=== PATIENT | female | born 1955 | race Caucasian/White ===

== ENCOUNTER 2023-03-23 13:54 | Inpatient (IN) | payer BC ==
[2023-03-23 14:28] LABS: #Basophils 0.1 thou/uL (0.0-0.2); #Eosinphils 0.1 thou/uL (0.0-0.7); #Monocytes 0.4 thou/uL (0.11-0.59); #Neutrophils 4.3 thou/uL (1.40-6.50); %Basophils 0.6 % (0.0-1.0); %Eosinophils 1.5 % (0.0-10.0); %Lymphocytes 39.3 % (21.0-51.0); %Monocytes 4.9 % (0.0-10.0); %Neutrophils 53.3 % (42.0-75.0); Hematocrit 41.6 % (36.0-47.0); Hemoglobin 13.7 g/dL (12.0-16.0); Mean Corpuscular HGB CONC 32.9 g/dL (32.0-36.0); Mean Corpuscular Volume 94.1 fl (78.0-98.0); Mean Platelet Volume 10.5 fL (7.4-10.4); Platelet Count 244 10x3/uL (130-400); RBC Distribution Width 13.3 % (11.5-14.5); Red Blood Cell (RBC) Count 4.42 mill/uL (4.20-5.40); White Blood Cell (WBC) Count 8.1 10x3/uL (4.8-10.8)
[2023-03-23] MEDS ORDERED: Aspirin Chewable 81 MG TAB ONE (14:38)
[2023-03-23] MEDS ORDERED: Nitroglycerin 0.4 MG TAB (25 Tab Bottle) ONE (14:38)
[2023-03-23 14:54] LABS: ALT (SGPT) 30 U/L (8-55); AST (SGOT) 23 U/L (5-34); Albumin 4.6 g/dL (3.4-4.8); Alkaline Phosphatase 87 U/L (40-110); Anion Gap 15 mmol/L (10-20); BUN (Urea Nitrogen) 15 mg/dL (9.8-20.1); Bilirubin, Total 0.3 mg/dL (0.2-1.2); Calc. Creatinine Clearance 0 mL/min (70-130); Calcium 9.8 mg/dL (7.8-10.44); Carbon Dioxide 24 mmol/L (23-31); Chloride 105 mmol/L (98-107); Estimated GFR 85; Globulin 2.7 g/dL (2.4-3.5); Glucose 103 mg/dL (80-115); Lipase 37 U/L (8-78); Potassium 3.8 mmol/L (3.5-5.1); Protein, Total 7.3 g/dL (5.8-8.1); Sodium 140 mmol/L (136-145); Troponin I Less than 0.010 ng/mL (< 0.028)
[2023-03-23] MEDS ORDERED: Nitroglycerin 2% Ointment 1 INCH/1 GM Packet ONE (15:39)
[2023-03-23] MEDS ORDERED: Acetaminophen 325 MG TAB PO PRN (16:07)
[2023-03-23] MEDS ORDERED: Nitroglycerin 0.4 MG TAB (25 Tab Bottle) SL PRN (16:07)
[2023-03-23] MEDS ORDERED: Ondansetron ODT 4 MG TAB PO PRN (16:07)
[2023-03-23 18:35] LABS: Troponin I Less than 0.010 ng/mL (< 0.028)
[2023-03-23 21:17] LABS: Troponin I Less than 0.010 ng/mL (< 0.028)
[2023-03-24] MEDS: Metoprolol Tartrate 25 MG TAB PO SCH ×2 (00:10→08:37)
[2023-03-24] MEDS: Famotidine 20 MG TAB PO SCH ×3 (00:10→20:30)
[2023-03-24] MEDS: Atorvastatin Calcium 40 MG TAB PO SCH ×2 (00:10→20:30)
[2023-03-24] MEDS ORDERED: Metoprolol Tartrate 25 MG TAB ONE ×2 (00:15→07:47)
[2023-03-24] MEDS ORDERED: Famotidine 20 MG TAB ONE ×2 (00:15→07:47)
[2023-03-24] MEDS ORDERED: Atorvastatin Calcium 40 MG TAB ONE (00:15)
[2023-03-24] MEDS ORDERED: Nitroglycerin 2% Ointment 1 INCH/1 GM Packet ONE ×2 (00:15→06:40)
[2023-03-24] MEDS: Nitroglycerin 2% Ointment 1 INCH/1 GM Packet TOP SCH ×3 (00:21→15:20)
[2023-03-24 06:15] LABS: Cardiac Risk 4.1 (Less than 4.5)
[2023-03-24] MEDS ORDERED: Aspirin Chewable 81 MG TAB ONE (07:48)
[2023-03-24] MEDS: Aspirin Chewable 81 MG TAB PO SCH (08:04)
[2023-03-24 15:07] VITALS: BMI 31.6
[2023-03-25] MEDS: Nitroglycerin 2% Ointment 1 INCH/1 GM Packet TOP SCH ×3 (03:39→14:44)
[2023-03-25] MEDS: Aspirin Chewable 81 MG TAB PO SCH (10:01)
[2023-03-25] MEDS: Famotidine 20 MG TAB PO SCH (10:01)
[2023-03-25 19:07] VITALS: BP 150/79; TEMP 98.7
== END 2023-03-25 19:40 | disposition home or self-care (01) | DRG 392 ==
LOC: ERS 13:54 → ERHOLD 15:49 → 2SW 03-24 14:49 → OBSVTOIN 03-25 14:01
PROVIDERS: ADMIT Internal Medicine; ATTEND Internal Medicine
DX: K21.9 Gastro-esophageal reflux disease without esophagitis (principal); E78.00 Pure hypercholesterolemia, unspecified; Z88.0 Allergy status to penicillin; Z88.1 Allergy status to other antibiotic agents; Z88.8 Allergy status to other drugs, medicaments and biological substances; Z98.890 Other specified postprocedural states; Z90.49 Acquired absence of other specified parts of digestive tract; Z90.710 Acquired absence of both cervix and uterus
CPT/HCPCS: 36415; 71045; 76705; 80053; 80061; 83690; 84484; 85025; 85379; 93005; 93017; 93306; 96372; G0378; J1650